=== PATIENT | female | born 1965 ===

== ENCOUNTER → 2022-10-05 09:11 | Outpatient (CLI) | payer BC, SELFPAY ==
--- NOTE | ~2022-10-05 | MR_ITS ---
MRI of the right shoulder Technique: Axial proton-density fat-sat images, coronal proton density fat-sat and T2 fat-sat images, and sagittal T1-weighted and T2 fat-sat images were acquired. Clinical History: Pain Findings: There is moderate to advanced AC joint degenerative change. No significant subacromial spur . Coracoclavicular, coracoacromial, coracohumeral ligaments are intact. There is severe tendinosis of the distal supraspinatus and infraspinatus tendons, without definite pa rtial or full-thickness tear. Subscapularis tendon is intact with mild tendinosis. Tendon of long hea d of the biceps is intact, with intra-articular tendinosis. There is probable degenerative tearing of the anterosuperior labrum. Inferior glenohumeral ligament is intact. Small glenohumeral joint effusion present. No degenerative change of the glenohumeral joint. No fluid distention of the subacromial/subdeltoid bursa. No muscle atrophy or edema. Impression: Severe rotator cuff tendinosis, without partial or full-thickness tear. Probable degenerative tearing of the anterosuperior labrum. Moderate to advanced AC joint degenerative change. Reviewed, dictated and finalized at location . Impression: Severe rotator cuff tendinosis, without partial or full-thickness tear. Probable degenerative tearing of the anterosuperior labrum. Moderate to advanced AC joint degenerative change.
== END ==
PROVIDERS: PCP Family Medicine
DX: M25.511 Pain in right shoulder (principal); M19.011 Primary osteoarthritis, right shoulder; M25.611 Stiffness of right shoulder, not elsewhere classified
CPT/HCPCS: 73221

== ENCOUNTER → 2022-12-14 10:44 | Outpatient (CLI) | payer BC, SELFPAY ==
--- NOTE | ~2022-12-14 | XR_ITS ---
Supine and upright views of the abdomen Clinical history: Renal stone Findings: Bowel gas pattern is nonspecific. No evidence for obstruction or free air. No abnormal mass lesion or calcification is seen. Osseous structures are intact. Impression: No significant abnormality is seen. Reviewed, dictated and finalized at [facility]. Impression: No significant abnormality is seen.
== END ==
PROVIDERS: PCP Urology; Visit Provider Urology
DX: N20.1 Calculus of ureter (principal)
CPT/HCPCS: 74018

== ENCOUNTER → 2023-02-05 13:07 | Outpatient (CLI) | payer BC, SELFPAY ==
--- NOTE | ~2023-02-05 | DEXA_ITS ---
Bone Density Report Name: CARMELLA ABBASI Age: 57 Sex: Female Ethnicity: White Date of : 1965 Indication: postmenopausal; screening for osteoporosis; height loss; Referring Provider: ANIKA, MARIELY Study: Bone densitometry was performed. Exam Date: February 05, 2023 Accession number: [id number] Bone Density: Region BMD T-score Z-score Classification AP Spine (L1-L4) 1.223 1.6 2.8 Normal Femoral Neck (Left) 0.795 -0.5 0.7 Normal Total Hip (Left) 1.080 1.1 1.9 Normal Femoral Neck (Right) 0.797 -0.5 0.7 Normal Total Hip (Right) 1.080 1.1 1.9 Normal Total Hip Mean 1.080 1.1 1.9 Normal World Health Organization criteria for BMD impression classify patients as: Normal (T-score at or above -1.0), Osteopenia (T-score between -1.0 and -2.5), or Osteoporosis (T-score at or below -2.5). 10-year Fracture Risk: FRAX not reported because: All T-scores for Spine Total, Hip Total, Femoral Neck at or above -1.0 Clinical Information Provided by Patient: Patient maximum height was 63 Menopause Age: 40 No regular weight bearing exercise Does not regularly consume dairy products Drinks caffeinated beverages Onset of menses at age 13 Number of children 2 Impression: The patient has normal bone mass. Discussion: BONE DENSITY IS ABOVE THE MINIMUM DESIRABLE LEVEL AT ALL SKELETAL SITES TESTED. This patient?s bone mineral density is above the minimum desirable level (T-score -1.0 or better) at all sites measured. The patient should follow a healthful lifestyle (good nutrition with adequate calcium and vitamin D, and appropriate weight-bearing exercise). Follow-Up: Consider repeating this study in 5 years or sooner if there is some new clinical indication. Reported by: RAVINDRA on 02/05/2023 1:41:00 PM. Reviewed, dictated and finalized at location ASteven CALDERÓN
== END ==
PROVIDERS: PCP Obstetrics & Gynecology; Visit Provider Obstetrics & Gynecology
DX: Z78.0 Asymptomatic menopausal state (principal)
CPT/HCPCS: 77080

== ENCOUNTER 2024-01-21 09:28 | Outpatient (CLI) | payer BC, SELFPAY ==
--- NOTE | ~2024-01-21 | XR_ITS ---
XR abdomen/kub 1V Ordering provider: Ramón Mcneil MD History: . Left ureteral stone . Comparison: None. FINDINGS: BOWEL: Nonobstructive bowel gas pattern. ORGANOMEGALY: None. SIGNIFICANT PATHOLOGIC CALCIFICATIONS: Calcific area seen in the left kidney suggestive of stone. David nt calcification in the area of the left upper ureter OTHER: Degenerative spine. No free air is seen under the diaphragm. Pubic symphysitis. IMPRESSION: NO ACUTE ABDOMINAL FINDINGS. Left kidney stone. Faint Calcification in the area of the left upper ureter is not excluded Reviewed, dictated and finalized at location A.
== END 2024-01-21 09:29 | disposition home or self-care (01) ==
LOC: MICIMG 09:30
PROVIDERS: PCP Urology; Visit Provider Urology
DX: N20.1 Calculus of ureter (principal)
CPT/HCPCS: 74018